=== PATIENT | female | born 1995 | race Caucasian/White ===

== ENCOUNTER 2018-08-23 16:55 | Emergency (ER) | payer OTHER ==
[~2018-08-23] VITALS: Ht 160 cm; Wt 94.3 kg
[2018-08-23 17:07] VITALS: Ht 160 cm; Wt 94.3 kg
[2018-08-23 20:17] VITALS: BP 117/79
== END 2018-08-23 20:17 | disposition home or self-care (01) ==
LOC: ED 16:55
DX: J98.01 Acute bronchospasm (principal); E66.9 Obesity, unspecified; Z68.36 Body mass index [BMI] 36.0-36.9, adult

== ENCOUNTER 2018-12-05 20:04 | Emergency (ER) | payer OTHER ==
[~2018-12-05] VITALS: Ht 157.5 cm; Wt 95.7 kg
[2018-12-05 20:17] VITALS: Ht 157.5 cm; Wt 95.7 kg
[2018-12-05 22:49] VITALS: BP 129/85
== END 2018-12-05 22:49 | disposition home or self-care (01) ==
LOC: ED 20:04
DX: S30.0XXA Contusion of lower back and pelvis, initial encounter (principal); W01.0XXA Fall on same level from slipping, tripping and stumbling without subsequent striking against object, initial encounter; Y93.89 Activity, other specified; Y92.89 Other specified places as the place of occurrence of the external cause; Y99.8 Other external cause status
CPT/HCPCS: J1885

== ENCOUNTER 2020-04-07 20:06 | Emergency (ER) | payer OTHER ==
[~2020-04-07] VITALS: Ht 160 cm; Wt 95.7 kg
[2020-04-07 20:28] VITALS: BP 102/59; Ht 160 cm; Wt 95.7 kg
[2020-04-07 21:28] LABS: BASOPHIL % 0.6 % (0.2-1.3); PLATELET COUNT 364 x10^3mcL (179-408); RED CELL DISTRIBUTION WIDTH 13.1 % (12.3-17.7)
[2020-04-07 21:42] LABS: CALCIUM 8.7 mg/dL (8.5-10.1); CARBON DIOXIDE 23.7 mmol/L (21-32); CHLORIDE SERUM 107 mmol/L (98-107); CREATININE SERUM 0.6 mg/dL (0.6-1.0); GFR1 > 60 mL/min; GLUCOSE SERUM 108 mg/dL (74-106); POTASSIUM SERUM 3.7 mmol/L (3.5-5.1); SODIUM SERUM 139 mmol/L (136-145)
[2020-04-07 21:46] LABS: ALKALINE PHOSPHATASE 159 U/L (46-116); ALT/SGPT 57 U/L (14-59); AST/SGOT 65 U/L (15-37); BILIRUBIN TOTAL 0.4 mg/dL (0.20-1.00); TOTAL PROTEIN, SERUM 6.7 g/dL (6.4-8.2)
[2020-04-07 21:47] LABS: ALBUMIN 2.7 g/dL (3.4-5.0)
== END 2020-04-07 22:50 | disposition home or self-care (01) ==
LOC: ED 20:06
PROVIDERS: Emergency Medicine
DX: R07.89 Other chest pain (principal)